=== PATIENT | male | born 1985 | race Caucasian/White ===

== ENCOUNTER 2020-12-09 00:29 | Emergency (ER) | payer BC ==
[~2020-12-09] VITALS: Ht 198.1 cm; Wt 102.8 kg
[2020-12-09 00:33] VITALS: BP 139/75
--- NOTE | 2020-12-09 00:49 | NUR ---
DC pagekosta Ricci
[2020-12-09] MEDS ORDERED: SODIUM CHLORIDE 0.9% 1,000ML IVBOLUS ONE (01:00)
[2020-12-09] MEDS ORDERED: PROPOFOL 10 MG/ML, 20ML IVPush ONE (01:00)
[2020-12-09] MEDS ORDERED: PROPOFOL 10 MG/ML, 20ML ONE ×2 (01:10→02:17)
--- NOTE | 2020-12-09 01:14 | NUR ---
[facility] Call team called. Frankie Wise on his way.
--- NOTE | 2020-12-09 02:30 | NUR ---
PROCEDURAL SEDATION WITH ENDO AND GI COMPLETE. PT TOLERATED WELL. EMERGENCY EQUIPMENT AND SIGNED CONSENT AT THE BEDSIDE. PT TOLERATED PROCEDURE WELL. SEE PAPER SEDATION CHARTING FOR FURTHER DETAIL. STEPHANIEN, VSS AT THIS TIME.
--- NOTE | 2020-12-09 03:04 | NUR ---
Patient given discharge instructions and they have confirmed that they understand the instructions. Patient ambulatory with steady gait. NAD, all questions answered appropriately, denies additional needs at this time. No personal belongings left in room after discharge.
== END 2020-12-09 03:12 | disposition home or self-care (01) ==
LOC: ED 02:45
DX: T18.128A Food in esophagus causing other injury, initial encounter (principal); X58.XXXA Exposure to other specified factors, initial encounter; Y93.89 Activity, other specified; Y92.89 Other specified places as the place of occurrence of the external cause; Y99.8 Other external cause status
CPT/HCPCS: 43247; 96360; 99152; 99285; J7030; 88305